=== PATIENT | female | born 1985 | race Caucasian/White ===

== ENCOUNTER → 2021-08-30 | Outpatient (REF) | payer OTHER ==
[2021-08-30 21:21] LABS: BASO % 0.4 % (0.0-1.0); EOS # 0.2 10^3/uL (0.0-0.5); EOS % 1.9 % (0.0-3.0); HEMATOCRIT 41.3 % (36.0-47.0); HEMOGLOBIN 13.6 g/dl (12.0-15.5); LYMPH % 30.2 % (24.0-44.0); MEAN CORPUSCULAR HEMOGLOBIN 30.7 pg (27.0-33.0); MEAN CORPUSCULAR HGB CONC 32.9 g/dl (32.0-36.5); MEAN CORPUSCULAR VOLUME 93.2 fl (80.0-96.0); MONO # 0.7 10^3/uL (0.0-0.8); MONO % 6.7 % (2.0-8.0); NEUTROPHILS % 60.4 % (36.0-66.0); PLATELET COUNT, AUTOMATED 396 10^3/uL (150-450); RED BLOOD COUNT 4.43 10^6/uL (4.00-5.40)
== END ==
LOC: M WUC 20:34
PROVIDERS: ATTEND Physician Assistant
DX: J02.9 Acute pharyngitis, unspecified (principal)

== ENCOUNTER → 2021-10-25 | Outpatient (CLI) | payer OTHER | LOC: M WHC 13:05 | PROVIDERS: ATTEND Nurse Practitioner Family | DX: R10.2 Pelvic and perineal pain (principal) ==

== ENCOUNTER → 2022-01-06 | Outpatient (REF) | payer OTHER ==
[2022-01-06 17:10] LABS: RSV AMPLIFICATION NEGATIVE (NEGATIVE)
== END ==
LOC: M WUC 16:18
PROVIDERS: ATTEND Physician Assistant
DX: J06.9 Acute upper respiratory infection, unspecified (principal)

== ENCOUNTER 2023-05-02 22:51 | Emergency (ER) | payer OTHER ==
[~2023-05-02] VITALS: Ht 157.5 cm; Wt 69.7 kg
[2023-05-02 22:52] VITALS: BP 141/84; TEMP 97.4; O2SAT 98
[2023-05-02] MEDS ORDERED: IBUP1TAB6 PO (22:58)
[2023-05-03] MEDS ORDERED: METOCLOPRAMIDE INJ 10MG/2ML VIAL IV ONE (00:35)
[2023-05-03] MEDS ORDERED: KETOROLAC 30 MG/ML 1ML VIAL IV ONE (00:35)
[2023-05-03] MEDS ORDERED: NS 1,000 ML IV ONE (00:35)
[2023-05-03] MEDS ORDERED: diphenhydrAMINE 50MG/ML VIAL IV ONE (00:35)
== END 2023-05-03 04:40 | disposition home or self-care (01) ==
LOC: M ED 22:51
DX: Q07.00 Arnold-Chiari syndrome without spina bifida or hydrocephalus (principal); R51.9 Headache, unspecified; F17.210 Nicotine dependence, cigarettes, uncomplicated; F10.10 Alcohol abuse, uncomplicated; Z79.1 Long term (current) use of non-steroidal anti-inflammatories (NSAID)
CPT/HCPCS: 70450; 96361; 96374; 96375; 99283; J1200; J1885; J2765

== ENCOUNTER → 2023-06-25 | Outpatient (CLI) | payer OTHER ==
[~2023-06-25] MED LIST: IBUP1TAB6 PO
== END ==
LOC: M WHC 15:05
PROVIDERS: ATTEND Nurse Practitioner Family
DX: R10.2 Pelvic and perineal pain (principal); D25.9 Leiomyoma of uterus, unspecified

== ENCOUNTER → 2023-08-27 | Outpatient (CLI) | payer OTHER | LOC: M WHC 15:12 | PROVIDERS: ATTEND Nurse Practitioner Family | DX: N83.202 Unspecified ovarian cyst, left side (principal) ==